=== PATIENT | male | born 1975 | race African-American/Black ===

== ENCOUNTER 2020-01-23 11:19 | Emergency (ER) | payer MEDICAID ==
[~2020-01-23] VITALS: Ht 182.9 cm; Wt 80.7 kg
[2020-01-23 11:31] VITALS: BP 128/79
[2020-01-23] MEDS ORDERED: LIDOCAINE700 M1 TP (11:36)
[2020-01-23] MEDS ORDERED: IBUPROFEN600 M1 ORAL (11:36)
[2020-01-23] MEDS ORDERED: ROBAXIN-750750 MG PO (11:36)
[2020-01-23 11:39] VITALS: BP 128/79
--- NOTE | 2020-01-23 11:39 | Emergency Room Report ---
History of Present Illness General Chief Complaint: Back Pain-No Injury Source: Patient Present Illness HPI Disclaimer: Please note that this report is being documented using DRAGON technology. This can lead to erroneous entry secondary to incorrect interpretation by the dictating instrument. HPI: 44-year-old otherwise healthy male presents for evaluation of back pain. He reports laying in bed today and feeling a squeezing sensation over the left side of the lower back and the left buttock. Sometimes feels like there is "electricity" coming from the back down to the thigh. Denies recent injury. Was lifting a heavy TV a few days ago. Ambulating without difficulty and able to stand up straight. He denies urinary retention or fecal incontinence. Denies numbness or weakness in the lower extremities. Denies fever or chills. Does not inject any medications or IV drugs. No prior history of back injury. PMH: Denied PSH: Denied Allergies: Denied Social Hx: Denied Allergies: Coded Allergies: No Known Allergies (Unverified , 08/15/15) COVID-19 Screening Contact w/high risk pt: No Experienced COVID-19 symptoms?: No COVID-19 Testing performed PONY TRIMMER: No Nursing Documentation-PMH Past Medical History: No Stated History Review of Systems All Other Systems: negative except mentioned in HPI Physical Exam Vital Signs Date Time Temp Pulse Resp B/P (MAP) Pulse Ox O2 Delivery O2 Flow Rate FiO2 01/23/20 11:24 98.1 79 16 128/79 (95) 96 Room Air General: Awake and alert, no acute distress HEENT: NC/AT. EOMI. Resp: Normal work of breathing Skin: Intact. No abrasions, laceration or rash over the exposed skin MSK: Normal tone and bulk. Moving all extremities. No obvious deformity. Ambulating without difficulty. Neuro: Awake and alert. Mentating appropriately. Sensation intact to light touch over the dermatomes of lower extremity bilaterally. No saddle anesthesia. Spine: No tenderness, step-off or deformity in the lumbosacral spine. Left- sided paraspinal tenderness extending over the left gluteus. Medical Decision Making Diagnostic Impression: Primary Impression: Back spasm ER Course Is a 44-year-old female presenting for evaluation of atraumatic back pain. Consistent with lumbar strain, spasm or sciatica. No red flag symptoms of cauda equina syndrome or spinal epidural abscess or space-occupying lesion. He is neurologically intact and ambulating with a steady gait. No other complaints from patient at this time. Will treat symptomatically and refer to outpatient follow-up. Discussed reasons to return the ER. He understands and agrees with this treatment plan. Last Vital Signs Date Time Temp Pulse Resp B/P (MAP) Pulse Ox O2 Delivery O2 Flow Rate FiO2 01/23/20 11:31 98.1 77 16 128/79 96 Room Air Disposition: HOME, SELF-CARE Condition: Stable Scripts Lidocaine (Lidocaine) 1 Each Adh..patch 700 MG TP DAILY, #10 PATCH Prov: Sandro Omalley MD 01/23/20 Methocarbamol* (ROBAXIN-750*) 750 Mg Tablet 750 MG PO QID, #28 TAB 0 Refills Prov: Sandro Omalley MD 01/23/20 Ibuprofen* (MOTRIN*) 600 Mg Tablet 600 MG ORAL Q6H PRN for For Pain, #30 TAB 0 Refills Prov: Sandro Omalley MD 01/23/20 Referrals: [facility] Patient Instructions: Back Pain, Adult Additional Instructions: Please follow-up with your primary care doctor in the next 1 to 3 days to discuss this emergency department visit and for reevaluation. If you have any new or worsening symptoms please return to the emergency department for reevaluation. Please note that this report is being documented using DRAGON technology. This can lead to erroneous entry secondary to incorrect interpretation by the dictating instrument. Sandro Omalley MD Jan 23, 2020 11:39
== END 2020-01-23 12:00 | disposition home or self-care (01) ==
LOC: EMR 11:55
DX: M62.830 Muscle spasm of back (principal); M54.9 Dorsalgia, unspecified
CPT/HCPCS: 99282

== ENCOUNTER 2020-01-28 08:37 | Emergency (ER) | payer MEDICAID ==
[~2020-01-28] VITALS: Ht 182.9 cm; Wt 79.4 kg
[~2020-01-28 08:37] MED LIST: IBUPROFEN600 M1 ORAL; LIDOCAINE700 M1 TP; ROBAXIN-750750 MG PO
[2020-01-28] MEDS ORDERED: Omnipaque-300 100ml vial INJ PRN (09:00)
--- NOTE | 2020-01-28 09:02 | Emergency Room Report ---
History of Present Illness General Chief Complaint: Nausea Source: Patient Present Illness HPI Disclaimer: Please note that this report is being documented using [employer] technology. This can lead to erroneous entry secondary to incorrect interpretation by the dictating instrument. HPI: 44-year-old otherwise healthy male presents for evaluation of abdominal pain and vomiting. Reports periumbilical abdominal pain started 2 days ago and has now moved to the right lower quadrant. There is mild to moderate pain though constant. Not affected by eating or drinking. Denies diarrhea. Vomiting began yesterday afternoon. Reports multiple episodes of nonbloody nonbilious emesis. Denies fever or chills. Denies history of intra-abdominal surgeries. Denies chest pain, palpitations, shortness of breath. Seen in the emergency department few days ago for atraumatic back pain but states that ibuprofen and muscle relaxants are helping him. It sometimes hurts his back more on the left side when he vomits. Denies dysuria hematuria. PMH: Denied PSH: Denied Allergies: Denied Social Hx: Denied Allergies: Coded Allergies: No Known Allergies (Unverified , 08/15/15) COVID-19 Screening Contact w/high risk pt: No Experienced COVID-19 symptoms?: Yes COVID-19 Testing performed THREAD SPINNER: No Nursing Documentation-PMH Past Medical History: No Stated History Review of Systems All Other Systems: negative except mentioned in HPI Physical Exam Vital Signs Date Time Temp Pulse Resp B/P (MAP) Pulse Ox O2 Delivery O2 Flow Rate FiO2 01/28/20 08:50 98.6 84 18 132/80 (97) 98 Room Air General: Awake and alert, no acute distress HEENT: NC/AT. EOMI. Cardiovascular: RRR. S1 and S2 normal. No murmur appreciated Resp: Normal work of breathing. No cough, wheezing or crackles appreciated Abdomen: Abdomen is soft, nondistended. Tenderness palpation of the right lower quadrant without guarding or rebound. Mild periumbilical tenderness as well. Some suprapubic tenderness. No tenderness in the upper quadrants. Skin: Intact. No abrasions, laceration or rash over the exposed skin MSK: Normal tone and bulk. Moving all extremities. No obvious deformity. Neuro: Awake and alert. Mentating appropriately. Medical Decision Making Diagnostic Impression: Primary Impression: Enteritis ER Course Is a 44-year-old male presenting for evaluation of abdominal pain and vomiting. Differential includes is not limited to gastritis, gastroenteritis, viral syndrome, pancreatitis, cholecystitis, nephrolithiasis, UTI, pyelonephritis, appendicitis, bowel obstruction among others. Patient started on IV fluids, antiemetics, antacids. Broad labs ordered. Given the migratory nature of the abdominal pain from periumbilical to right lower quadrant region now with vomiting concern for appendicitis CT scan was obtained. CT scan consistent with an enteritis. No evidence of pancreatitis or other significant findings noted. Labs returned within normal limits. The patient's belly remained soft. No further emesis in the ED. Suspect a viral syndrome which should resolve in the next few days. Dietary changes and antiemetic medications discussed with patient. Stable for outpatient follow-up. Instructed to return with new or worsening symptoms. He understands and agrees with this treatment plan. Laboratory Tests Test 01/28/20 09:22 White Blood Count 4.2 K/UL (4.8-10.8) L Red Blood Count 3.82 M/UL (4.70-6.10) L Hemoglobin 14.0 G/DL (14.2-18.0) L Hematocrit 41.1 % (42.0-52.0) L Mean Corpuscular Volume 108 FL (80-99) H Mean Corpuscular Hemoglobin 36.7 PG (27.0-31.0) H Mean Corpuscular Hemoglobin Concent 34.1 G/DL (32.0-36.0) Red Cell Distribution Width 13.8 % (11.6-14.8) Platelet Count 286 K/UL (150-450) Mean Platelet Volume 8.1 FL (6.5-10.1) Neutrophils (%) (Auto) 56.3 % (45.0-75.0) Lymphocytes (%) (Auto) 32.4 % (20.0-45.0) Monocytes (%) (Auto) 7.1 % (1.0-10.0) Eosinophils (%) (Auto) 2.3 % (0.0-3.0) Basophils (%) (Auto) 2.0 % (0.0-2.0) Urine Color Yellow Urine Appearance Clear Urine pH 6.5 (4.5-8.0) Urine Specific Coyle 1.020 (1.005-1.035) Urine Protein Negative (NEGATIVE) Urine Glucose (UA) Negative (NEGATIVE) Urine Ketones 3+ (NEGATIVE) H Urine Blood Negative (NEGATIVE) Urine Nitrite Negative (NEGATIVE) Urine Bilirubin Negative (NEGATIVE) Urine Urobilinogen Normal MG/DL (0.0-1.0) Urine Leukocyte Esterase 1+ (NEGATIVE) H Urine RBC 0 /HPF (0 - 0) Urine WBC 0-2 /HPF (0 - 0) Urine Squamous Epithelial Cells Occasional /LPF Urine Bacteria Occasional /HPF (NONE) Urine Mucus Occasional /LPF Sodium Level 137 MMOL/L (136-145) Potassium Level 4.1 MMOL/L (3.5-5.1) Chloride Level 103 MMOL/L (98-107) Carbon Dioxide Level 25 MMOL/L (21-32) Anion Gap 9 mmol/L (5-15) Blood Urea Nitrogen 21 mg/dL (7-18) H Creatinine 1.2 MG/DL (0.55-1.30) Estimated Glomerular Filtration Rate > 60 mL/min (>60) Glucose Level 112 MG/DL (74-106) H Calcium Level 8.4 MG/DL (8.5-10.1) L Total Bilirubin 0.3 MG/DL (0.2-1.0) Aspartate Amino Transferase (AST) 46 U/L (15-37) H Alanine Aminotransferase (ALT) 37 U/L (12-78) Alkaline Phosphatase 46 U/L (46-116) Total Protein 6.8 G/DL (6.4-8.2) Albumin 3.4 G/DL (3.4-5.0) Globulin 3.4 g/dL Albumin/Globulin Ratio 1.0 (1.0-2.7) Lipase 74 U/L (73-393) CT/MRI/US Diagnostic Results CT/MRI/US Diagnostic Results : Impression IMPRESSION: 1. Trace bilateral pleural effusions. 2. Mildly prominent fluid and gas-filled small bowel loops are nonspecific but may represent enteritis or ileus in the appropriate clinical setting. 3. Mild prominence of the hanks of the colon may be secondary to underdistention. Element of colitis is not excluded. 4. Distended bladder. Mild prominence of the bladder wall could represent cystitis. Please correlate with urinalysis. Dictated By: Salinas Jonas MD Electronically Signed By:Salinas Jonas MD Signed Date/Time 01/28/20 1059 Last Vital Signs Date Time Temp Pulse Resp B/P (MAP) Pulse Ox O2 Delivery O2 Flow Rate FiO2 01/28/20 08:50 98.6 84 18 132/80 (97) 98 Room Air Disposition: HOME, SELF-CARE Condition: Stable Scripts Ondansetron Odt* (ZOFRAN ODT*) 4 Mg Tab.rapdis 4 MG BC EVERY 6 HOURS PRN for Nausea & Vomiting, #20 TAB 0 Refills Prov: Sandro Omalley MD 01/28/20 Sandro Omalley MD Jan 28, 2020 09:02
[2020-01-28 09:35] VITALS: BP 132/80
[2020-01-28 09:35] LABS: APPEARANCE,URINE CLEAR; BILIRUBIN, URINE NEGATIVE (NEGATIVE); EOSINOPHILS % (AUTO) 2.3 % (0.0-3.0); GLUCOSE, URINE (UA) NEGATIVE (NEGATIVE); HEMATOCRIT 41.1 % (42.0-52.0); KETONES,URINE 3+ (NEGATIVE); LEUKOCYTE ESTERASE ,URINE 1+ (NEGATIVE); LYMPHOCYTES % (AUTO) 32.4 % (20.0-45.0); MEAN CORPUSCULAR VOLUME 108 FL (80-99); MONOCYTES % (AUTO) 7.1 % (1.0-10.0); NEUTROPHILS % (AUTO) 56.3 % (45.0-75.0); NITRITE,URINE NEGATIVE (NEGATIVE); PH,URINE 6.5 (4.5-8.0); PLATELET COUNT 286 K/UL (150-450); PROTEIN,URINE NEGATIVE (NEGATIVE); RED BLOOD COUNT 3.82 M/UL (4.70-6.10); RED CELL DISTRIBUTION WIDTH 13.8 % (11.6-14.8); UROBILINOGEN,URINE NORMAL MG/DL (0.0-1.0); WHITE BLOOD COUNT 4.2 K/UL (4.8-10.8)
[2020-01-28 09:37] LABS: COLOR,URINE YELLOW
[2020-01-28 09:51] LABS: ANION GAP 9 mmol/L (5-15); BLOOD UREA NITROGEN 21 mg/dL (7-18); CALCIUM 8.4 MG/DL (8.5-10.1); CARBON DIOXIDE 25 MMOL/L (21-32); CHLORIDE 103 MMOL/L (98-107); CREATININE 1.2 MG/DL (0.55-1.30); POTASSIUM 4.1 MMOL/L (3.5-5.1); SODIUM 137 MMOL/L (136-145)
[2020-01-28 09:54] LABS: ALANINE AMINOTRANSFERASE 37 U/L (12-78); ALBUMIN 3.4 G/DL (3.4-5.0); ALKALINE PHOSPHATASE 46 U/L (46-116); ASPARTATE AMINO TRANSFERASE 46 U/L (15-37); BILIRUBIN,TOTAL 0.3 MG/DL (0.2-1.0)
[2020-01-28] MEDS ORDERED: ONDANSETRON ODT4 MG BC (10:51)
--- NOTE | 2020-01-28 11:00 | Diagnostic Imaging Report ---
EXAM: CT Abdomen and Pelvis With Intravenous Contrast CLINICAL HISTORY: ABD PAIN TECHNIQUE: Axial computed tomography images of the abdomen and pelvis with intravenous contrast. CTDI is 4.1 mGy and DLP is 216 mGy-cm. One or more of the following dose reduction techniques were used: automated exposure control, adjustment of the mA and/or kV according to patient size, use of iterative reconstruction technique. COMPARISON: None FINDINGS: Lung bases: Dependent atelectasis bilaterally. Pleural space: Trace bilateral pleural effusions. ABDOMEN: Liver: Unremarkable. No mass. Gallbladder and bile ducts: Unremarkable. No calcified stones. No ductal dilation. Pancreas: Unremarkable. No mass. No ductal dilation. Spleen: Unremarkable. No splenomegaly. Adrenals: Unremarkable. No mass. Kidneys and ureters: No hydronephrosis or obstructing stone. Small hypodensity in the right kidney is too small to definitively characterize. Stomach and bowel: Mildly prominent fluid and gas-filled small bowel loops are nonspecific but may represent enteritis or ileus in the appropriate clinical setting. Mild prominence of the hanks of the colon may be secondary to underdistention. Element of colitis is not excluded. Evaluation of the stomach is limited by underdistention. Diverticulosis without evidence of diverticulitis. PELVIS: Appendix: No findings to suggest acute appendicitis. Bladder: Distended bladder. Mild prominence of the bladder wall could represent cystitis. Please correlate with urinalysis. Reproductive: Unremarkable as visualized. ABDOMEN and PELVIS: Intraperitoneal space: Unremarkable. No free air. No significant fluid collection. Bones/joints: Degenerative changes of the spine. No acute fracture. No dislocation. Soft tissues: Unremarkable. Vasculature: Unremarkable. No abdominal aortic aneurysm. Lymph nodes: Unremarkable. No enlarged lymph nodes. IMPRESSION: 1. Trace bilateral pleural effusions. 2. Mildly prominent fluid and gas-filled small bowel loops are nonspecific but may represent enteritis or ileus in the appropriate clinical setting. 3. Mild prominence of the hanks of the colon may be secondary to underdistention. Element of colitis is not excluded. 4. Distended bladder. Mild prominence of the bladder wall could represent cystitis. Please correlate with urinalysis.
[2020-01-28 11:21] VITALS: BP 130/78
== END 2020-01-28 11:21 | disposition home or self-care (01) ==
LOC: EMR 10:20
DX: K52.9 Noninfective gastroenteritis and colitis, unspecified (principal)
CPT/HCPCS: 36415; 74177; 80053; 81003; 83690; 85025; 96361; 96374; 96375; J2405; J7030; Q9965; S0028; Z7502; 99284

== ENCOUNTER 2020-04-04 16:43 | Emergency (ER) | payer MEDICAID ==
[~2020-04-04] VITALS: Ht 182.9 cm; Wt 77.1 kg
[~2020-04-04 16:43] MED LIST changes: +ONDANSETRON ODT4 MG BC
[2020-04-04 16:56] VITALS: BP 124/73
--- NOTE | 2020-04-04 17:19 | NUR ---
ED Nurse Note: pt stated that he has a headache for a week that starts from the right back side of head that radiates around it. this pain is a constant and around 8/10. pt denies any alcohol use and just marijuana. pt denies any head trauma, n/v
--- NOTE | 2020-04-04 17:54 | Diagnostic Imaging Report ---
History: PAIN Exam: CT HEAD Without Contrast Technique more: CTDI is 53.4 mGy and DLP is 1029.9 mGy-cm. Technique more: One or more of the following dose reduction techniques were used: automated exposure control, adjustment of the mA and/or kV according to patient size, use of iterative reconstruction technique. Comparison: None available FINDINGS: No intracranial hemorrhage, mass-effect or CT evidence of acute infarct. Ventricles are within limits and midline. Convexity volume loss, atrophy. The visualized paranasal sinuses, mastoids and orbits appear within limits. IMPRESSION: No intracranial hemorrhage, mass-effect or CT evidence of acute infarct. Convexity volume loss, atrophy.
[2020-04-04 18:01] LABS: BASOPHILS % (AUTO) 1.4 % (0.0-2.0); EOSINOPHILS % (AUTO) 2.2 % (0.0-3.0); HEMATOCRIT 41.1 % (42.0-52.0); HEMOGLOBIN 13.7 G/DL (14.2-18.0); LYMPHOCYTES % (AUTO) 37.8 % (20.0-45.0); MEAN CORPUSCULAR VOLUME 104 FL (80-99); MONOCYTES % (AUTO) 8.3 % (1.0-10.0); NEUTROPHILS % (AUTO) 50.3 % (45.0-75.0); PLATELET COUNT 225 K/UL (150-450); RED BLOOD COUNT 3.95 M/UL (4.70-6.10); WHITE BLOOD COUNT 5.2 K/UL (4.8-10.8)
[2020-04-04 18:16] LABS: INR 0.9 (0.9-1.1)
--- NOTE | 2020-04-04 18:19 | NUR ---
ED Nurse Note: offered to move pt to another room where there is a bed. pt declined and stated he was comfortable in the seat he is sitting in.
[2020-04-04 18:24] LABS: ANION GAP 9 mmol/L (5-15); BLOOD UREA NITROGEN 23 mg/dL (7-18); CALCIUM 9.2 MG/DL (8.5-10.1); CARBON DIOXIDE 26 MMOL/L (21-32); CHLORIDE 107 MMOL/L (98-107); CREATININE 1.1 MG/DL (0.55-1.30); POTASSIUM 4.2 MMOL/L (3.5-5.1); SODIUM 141 MMOL/L (136-145)
[2020-04-04 18:28] LABS: ALANINE AMINOTRANSFERASE 42 U/L (12-78); ALBUMIN 3.8 G/DL (3.4-5.0); ALBUMIN/GLOBULIN RATIO 1.1 (1.0-2.7); ALKALINE PHOSPHATASE 76 U/L (46-116); ASPARTATE AMINO TRANSFERASE 42 U/L (15-37); BILIRUBIN,TOTAL 0.2 MG/DL (0.2-1.0)
[2020-04-04 18:41] LABS: APPEARANCE,URINE CLEAR; BILIRUBIN, URINE NEGATIVE (NEGATIVE); COLOR,URINE PALE YELLOW; GLUCOSE, URINE (UA) NEGATIVE (NEGATIVE); KETONES,URINE NEGATIVE (NEGATIVE); LEUKOCYTE ESTERASE ,URINE NEGATIVE (NEGATIVE); NITRITE,URINE NEGATIVE (NEGATIVE); PH,URINE 7 (4.5-8.0); PROTEIN,URINE NEGATIVE (NEGATIVE); UROBILINOGEN,URINE NORMAL MG/DL (0.0-1.0)
--- NOTE | 2020-04-04 18:58 | Emergency Room Report ---
History of Present Illness General Chief Complaint: Headache Source: Patient Present Illness HPI 44-year-old male with no significant past medical history here complaining of 1 week of sudden onset of right-sided posterior headache starting posterior neck radiating to the right frontal lobe especially worse in the morning. Reports it started when he was sitting at home. Denies any fall or injury. 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 Denies any photophobia, blurry vision, nausea vomiting dizziness reported today he feels slightly dizzy and near syncope however did not fall or injure himself. Denies chest pain or shortness of breath. Denies tobacco smoke, alcohol intake denies taking blood thinners. Denies any history of migraine or tension type headache. Denies any cough or congestion. Denies all other URI symptoms. Reports that when he gets the pain he feels like something is pulsating inside his head. Reports that he usually drinks enough liquids as it is working. Has not yet follow-up with primary doctor. Denies unilateral generalized weakness. Denies any slurred speech. Denies history of anxiety or depression. Denies any nosebleed reports that Motrin helps with pain sometimes. Allergies: Coded Allergies: No Known Allergies (Unverified , 08/15/15) COVID-19 Screening Contact w/high risk pt: No Experienced COVID-19 symptoms?: No COVID-19 Testing performed EXPLOSIVES DETONATOR: Yes COVID-19 Screening: Negative COVID-19 COVID-19 Testing Source: nasal Patient History Past Medical History: see triage record Past Surgical History: none Pertinent Family History: none Reviewed Nursing Documentation: PMH: Agreed; PSxH: Agreed Nursing Documentation-PMH Past Medical History: No Stated History Review of Systems All Other Systems: negative except mentioned in HPI Physical Exam Vital Signs Date Time Temp Pulse Resp B/P (MAP) Pulse Ox O2 Delivery O2 Flow Rate FiO2 04/04/20 16:51 98.1 81 17 124/73 (90) 98 Room Air Sp02 EP Interpretation: reviewed, normal General Appearance: no apparent distress, alert, GCS 15, non-toxic Head: normocephalic, atraumatic Eyes: bilateral eye normal inspection, bilateral eye PERRL ENT: hearing grossly normal, normal pharynx, no angioedema, normal voice Neck: full range of motion, supple, thyroid normal, no meningismus, no bony tend, no carotid bruits, supple/symm/no masses Respiratory: chest non-tender, lungs clear, normal breath sounds, no rhonchi, no respiratory distress, no retraction, no accessory muscle use, speaking full sentences Cardiovascular #1: regular rate, rhythm, no edema, no murmur Cardiovascular #2: 2+ carotid (R), 2+ carotid (L), 2+ radial (R), 2+ radial (L), 2+ dorsalis pedis (R), 2+ dorsalis pedis (L) Gastrointestinal: normal bowel sounds, non tender, soft, non-distended, no guarding, no rebound Musculoskeletal: back normal, normal range of motion, non-tender Neurologic: alert, motor strength/tone normal, oriented x3, sensory intact, responsive, speech normal Psychiatric: judgement/insight normal, memory normal, mood/affect normal, no suicidal/homicidal ideation Skin: no rash Lymphatic: no adenopathy Medical Decision Making PA Attestation All diagnoses and treatment plans were reviewed and discussed with my supervising physician Dr. Omalley Diagnostic Impression: Primary Impression: Tension type headache Additional Impressions: Cervical strain Headache, unspecified Near syncope ER Course 44-year-old male with no significant past medical history here complaining of 1 week of sudden onset of right-sided posterior headache starting posterior neck radiating to the right frontal lobe especially worse in the morning. Reports it started when he was sitting at home. Denies any fall or injury. 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 Denies any photophobia, blurry vision, nausea vomiting dizziness reported today he feels slightly dizzy and near syncope however did not fall or injure himself. Denies chest pain or shortness of breath. Denies tobacco smoke, alcohol intake denies taking blood thinners. Denies any history of migraine or tension type headache. Denies any cough or congestion. Denies all other URI symptoms. Reports that when he gets the pain he feels like something is pulsating inside his head. Reports that he usually drinks enough liquids as it is working. Has not yet follow-up with primary doctor. Denies unilateral generalized weakness. Denies any slurred speech. Denies history of anxiety or depression. Denies any nosebleed reports that Motrin helps with pain sometimes. Ddx considered but are not limited to: Migraine headache with aura, migraine headache without aura, tension headache, cluster headache, TBI, subarachnoid hemorrhage, CVA, TIA Vital signs: are WNL, pt. is afebrile H&PE are most consistent with: Tension type headache, headache unspecified, cervical strain, near syncope ORDERS: Head CT, CBC, CMP, troponin, EKG, chest x-ray, UA, PT and PTT, Benadryl, Excedrin, Motrin, Robaxin ER intervention: Patient did not have any pain and took a Tylenol, NS bolus DISCHARGE: At this time pt. is stable for d/c to home. Will provide printed patient care instructions, and any necessary prescriptions. Care plan and follow up instructions have been discussed with the patient prior to discharge. Advised patient to follow primary doctor MRI of brain may be needed as outpatient, avoid straining neck, if worsening symptoms return to the emergency room. EKG Diagnostic Results Rate: normal Rhythm: NSR ST Segments: no acute changes Other Impression No acute ST changes ASA given to the pt in ED: No Chest X-Ray Diagnostic Results Chest X-Ray Diagnostic Results : Chest X-Ray Ordered: Yes # of Views/Limited/Complete: 1 View Indication: Other EP Interpretation: Yes PA Xray: Interpretation reviewed, by supervising MD, and agrees with findings. Interpretation: no consolidation, no effusion, no pneumothorax Impression: No acute disease Electronically Signed by: Amanda Valadez PA-C CT/MRI/US Diagnostic Results CT/MRI/US Diagnostic Results : Imaging Test Ordered: CT head no contrast Impression FINDINGS: No intracranial hemorrhage, mass-effect or CT evidence of acute infarct. Ventricles are within limits and midline. Convexity volume loss, atrophy. The visualized paranasal sinuses, mastoids and orbits appear within limits. IMPRESSION: No intracranial hemorrhage, mass-effect or CT evidence of acute infarct. Convexity volume loss, atrophy. Last Vital Signs Date Time Temp Pulse Resp B/P (MAP) Pulse Ox O2 Delivery O2 Flow Rate FiO2 04/04/20 16:56 98.1 81 17 124/73 98 Room Air Disposition: HOME, SELF-CARE Condition: Stable Scripts Methocarbamol* (ROBAXIN-500*) 500 Mg Tablet 500 MG ORAL TID PRN for For Pain, #15 TAB 0 Refills Prov: Amanda Hook 04/04/20 Ibuprofen* (MOTRIN*) 600 Mg Tablet 600 MG ORAL Q6H PRN for For Pain, #30 TAB 0 Refills Prov: Amanda Hook 04/04/20 Diphenhydramine Hcl* (BENADRYL*) 25 Mg Capsule 25 MG ORAL Q6H PRN for Itching, #20 CAP Prov: Amanda Hook 04/04/20 Aspirin/Acetaminophen/Caffeine (EXCEDRIN EXTRA STRENGTH CAPLET) 1 Each Tablet 1 EACH PO TID, #30 TAB Prov: Amanda Hook 04/04/20 Referrals: LENARD MONTERO,REFERRING (PCP) Patient Instructions: Cervical Strain and Sprain With Rehab-SportsMed, Tension Headache Additional Instructions: Take medication as directed, follow with your primary care provider for further evaluation, MRI may be needed as outpatient per request of your primary doctor, if worsening symptoms return to the emergency room. Amanda Hook Apr 04, 2020 18:58
[2020-04-04] MEDS ORDERED: EXCEDRIN EXTRA1 EAC1 PO (19:00)
[2020-04-04] MEDS ORDERED: BENADRYL25 MG ORAL (19:00)
[2020-04-04] MEDS ORDERED: IBUPROFEN600 M1 ORAL (19:00)
[2020-04-04] MEDS ORDERED: ROBAXIN-500MG ORAL (19:00)
--- NOTE | 2020-04-04 19:04 | NUR ---
ER DISCHARGE NOTE: Patient is cleared to be discharged per ERMD, pt is aox4, on room air, with stable vital signs. pt was given dc and prescription instructions, pt was able to verbalize understanding, pt id band and iv site removed without complications. pt is able to ambulate with steady gait. pt took all belongings.
--- NOTE | 2020-04-05 14:34 | Diagnostic Imaging Report ---
Indication: Chest pain Technique: One view of the chest Comparison: none Findings: Lungs and pleural spaces are clear. Heart size is normal. Impression: No acute process
== END 2020-04-04 19:08 | disposition home or self-care (01) ==
LOC: EMR 18:44
DX: G44.209 Tension-type headache, unspecified, not intractable (principal); S16.1XXA Strain of muscle, fascia and tendon at neck level, initial encounter; R55 Syncope and collapse; X58.XXXA Exposure to other specified factors, initial encounter; Y93.H3 Activity, building and construction; Y92.9 Unspecified place or not applicable
CPT/HCPCS: 36415; 70450; 71045; 80053; 81003; 84484; 85025; 85610; 85730; 93005; 96360; Z7502; 99284